=== PATIENT | female | born 1990 ===

== ENCOUNTER 2024-11-08 15:54 | Outpatient (AMB) | payer OTHER, SELFPAY ==
--- OUTSIDE RECORDS SUMMARY | 2024-11-08 16:15 | XMS_ITS | Clinical Summary ---
Author Organization Patient Business Ser [facility] Address [address] [place] [address] Care Team Providers Care Health Informatics Specialist Name Role Phone Jed Bal MD Primary Care Provider [phone] Allergies No known active allergies Medications PNV,calcium 72/iron,carb/fo lic ( PLUS ORAL) Take 1 tablet by mouth 1 (one) time each day. 4 Active ergocalciferol (VITAMIN D-2) 1,250 mcg (50,000 unit) capsule Take 1 capsule (50,000 Units total) by mouth 1 (one) time per week. 4 Active doxycycline (MONODOX) 100 mg capsule Take 1 capsule (100 mg total) by mouth 2 (two) times a day with meals. 4 Active galcanezumab-gn lm (Emgality Syringe) 120 mg/mL syringe 3 Active butalbital-acet aminophen-caffe ine (FIORICET, ESGIC) 50-325-40 mg per tablet Take 2 tablets by mouth 1 (one) time each day if needed for headaches. 30 DAYS 2 Active rizatriptan (MAXALT) 10 mg tablet Take 1 tablet (10 mg total) by mouth 1 (one) time each day if needed for migraine. May repeat in 2 hours if needed 1 Active levonorgestreL (MIRENA) 21 mcg/24hr (up to 8 yrs) 52 mg IUD 1 Device (1 each total) by intrauterine route 1 (one) time. 8 Active amitriptyline (ELAVIL) 50 mg tablet TAKE 1 TABLET BY MOUTH EVERYDAY AT BEDTIME 90 tablet 1 5 Active clindamycin (CLEOCIN T) 1 % gel APPLY TO AFFECTED AREAS ON FACE, CHEST, AND BACK TWICE A DAY AFTER SOLUTION 5 Active sulfacetamide suspension (KLARON) 10 % suspension topical * SAYS PT HAS WELLSENSE* APPLY TO FACE, CHEST, BACK, SHOULDERS DAILY 5 Active Active Problems Problem Noted Date Diagnosed Date Anxiety and depression 02/18/2024 Hemorrhoids 08/05/2020 Obesity (BMI 30-39.9) 05/04/2019 Migraine without status migrainosus, not intract able 10/06/2018 Overview (02/18/2024): Follows with neurology Dysplasia of cervix, high grade JAYMIE 2 05/25/2018 Low grade squamous intraepit h lesion on cytologic smear cervix (lgsil) 05/23/2018 Overview (02/18/2024): 04/21/2018 Pap smear LSIL 05/18/2018 Colpo JAYMIE 2 at 12 Oclock negative ECC 2019 LEEP 10/10/2020 Pap smear NSIL w HR HPV Neg -Actinomycin present Hyperthyroidism 09/06/2017 Overview (02/18/2024): Follows with endocrinology, on methimazole GERD (gastroesophageal reflux disease) 7 Insomnia 12/03/2016 Encounters Date Type Department Care Team Description 09/28/2024 11:00 AM EDT Procedure visit Obstetrics and Gynecology [address] [address] Yeimy Mcqueen, [place] Encounter for IUD insertion (Primary Dx); Encounter for removal and reinsertion of intrauterine contraceptive device (IUD) from Last 3 Months Immunizations Name Administration Dates Next Due Hepatitis B (Bqaxdpx-T-Zsquw , Recombivax HB-Adult) 19yo and older 09/19/2013 Influenza Quadravalent, MDCK , 0.5ml, preservative free (Flucelvax) 6mo and older 01/20/2022,12/19/2020 Influenza Quadravalent, MDCK , 0.5ml, with preservative (Flucelvax) 6mo and older 11/18/2016 Influenza, Unspecified 12/26/2019 MMR, measles mumps and rubel la Live (Priorix; M-M-R II) 12mo and older 09/19/2013 PPD Test 10/11/2014,08/28/2013 Tdap Tetanus diptheria acell ular pertussis (Boostrix; Adacel) 7yo and older 09/19/2013 Surgical History Surgery Date Site/Laterality Comments OTHER SURGICAL HISTORY PROCEDURE: BREAST CYST,FLUID FOR CYTOLOGY EXAM; COMMENT: removed form the right breast OVARIAN CYST REMOVAL PROCEDURE: ME OVARIAN CYSTECTOMY UNI/BI; COMMENT: during - first trimester WISDOM TOOTH EXTRACTION PROCEDURE: HISTORICAL WISDOM TEETH EXTRACTION OTHER SURGICAL HISTORY PROCEDURE: CERVICAL LEEP CONE BIOPSY [facility] PATHOLOGY EX; COMMENT: 2018 Medical History Medical History Date Comments Family history of ovarian cancer 11/18/2016 DX:Family history of ovarian cancer; COMMENT: Referred to genetics 11/2016 Anxiety and depression DX:Anxiet y and depression GERD (gastroesophageal reflux disease) 12/03/2016 DX:GERD (gastroesophageal reflux disease) Insomnia 12/03/2016 DX:Insomnia Hyperthyroidism 09/06/2017 DX:Hyperthyroidi sm; COMMENT: Follows with endocrinology, on methimazole Overweight (BMI 25.0-29.9) 08/11/2018 DX:Ov erweight (BMI 25.0-29.9) Hyperthyroidism 09/06/2017 Family History Medical History Relation Name Comments Hypertension Father Colon cancer Maternal Grandmother Hypertension Maternal Grandmother anxiety ; colon ca at age 45; Mental illness Mother had anxiety Alzheimer's disease Other maternal great grandmother Hypertension Paternal Grandfather DM, hea rt problems Hypertension Paternal Grandmother DM, hea rt problems Thyroid disease Paternal Grandmother Blindness Neg Hx Breast cancer Neg Hx Cataracts Neg Hx Glaucoma Neg Hx Macular degeneration Neg Hx Strabismus Neg Hx Uterine cancer Neg Hx Relation Name Status Comments Brother Alive X2 (pancreatiti s) Father Alive pancreatitis Maternal Grandmother age 50 Mother Alive Other Paternal Grandfather Paternal Grandmother Sister Alive X1 Social History Tobacco Use Types Packs/Day Years Used Date Smoking Tobacco: Never Smokeless Tobacco: Never Alcohol Use Standard Drinks/Week Comments Yes 0 (1 standard drink = 0.6 oz pur e alcohol) Comments No Sex and Gender Information Value Date Recorded Sex Assigned at Not on file Legal Sex Female 3:20 PM EST Gender Identity Not on file Sexual Orientation Not on file Obstetrics History * This document contains information received from the source organization and may not represent a complete record from that organization. Para Term AB IAB SAB Ectopic Multiple Livin g Live Births 2 1 1 1 1 Date Outcome GA Total Labor Labor/2nd/3rd Weight Sex Type Anes PTL Ellie A1 A5 Name Clin 2011 Term 2750 g (97 oz) F Vag-S pont Living Last Filed Vital Signs Vital Sign Reading Time Taken Comments Blood Pressure 149/96 09/28/2024 10:51 AM EDT Pulse 107 09/28/2024 10:51 AM EDT Temperature - - Respiratory Rate 14 09/28/2024 10:51 AM EDT Oxygen Saturation - - Inhaled Oxygen Concentration - - Weight 84.1 kg (185 lb 6.4 oz) 09/28/2024 10:51 AM EDT Height 165.1 cm (5' 5 ) 12/16/2023 1:46 PM EDT Body Mass Index 30.85 12/16/2023 1:46 PM EDT Plan of Treatment Upcoming Encounters Date Type Department Care Team (Late st Contact Info) Description 11/27/2024 9:30 AM EDT Office Visit Adult Medicine [address] [address] Jed Bal MD [address] [place] [id number] Health Maintenance Due Date Last Done Comments Social Influencers of Health Screening 03/11/2021 Cholesterol Screening (Lipid Panel) 11/18/2021 11/18/2016 DTaP,Tdap,and Td Vaccines (8 - Td or Tdap) 09/20/2023 09/19/2013, 04/14/2005, 06/25/1997, Additional history exists COVID-19 Vaccine ( season) 2023 07/26/2020, 07/05/2020 Depression Screening 03/14/2024 01/03/2024 Influenza Vaccine (#1) 2024 2, 12/19/2020, 12/26/2019, Additional history exists Colorectal Cancer Screening: Colonoscopy 11/20/2025 Cervical Cancer Screening: HPV 10/02/2028 10/03/2023 HIB Vaccines Completed 12/11/1993, 03/16, 1992 IPV Vaccines Completed 06/25/1997, 11/14, 04/13/1993, Additional history exists Meningococcal ACWY Vaccine Aged Out 04/07/2007 N o longer eligible based on patient's age to complete this topic HPV Vaccines Completed 11/27/2008, 07/12, 05/28/2008 Hepatitis B Vaccines Completed 09/19/2013, 04/13/1994, 1992, Additional history exists MMR Vaccines Completed 09/19/2013, 06/12, 12/11/1993 HIV Screening Completed 06/10/2023 Hepatitis C Screening Completed 06/10/2023 Hepatitis A Vaccines Aged Out No long er eligible based on patient's age to complete this topic Meningococcal B Vaccine Aged Out No l onger eligible based on patient's age to complete this topic Pneumococcal Vaccine: Pediatrics (0 to 5 Years) and At-Risk Patients (6 to 49 Years) Aged Out No longer eligible based on patient's age to complete this topic RSV Immunization Patients Under 20 months Aged Out No longer eligible based on patient's age to complete this topic Varicella Vaccines Aged Out No longer eligible based on patient's age to complete this topic Procedures Procedure Name Priority Date/Time Associated Diagnosis Comments POC , URINE DIAGNOSTIC Routine 09/28/2024 11:10 AM EDT Encounter for IUD insertion ME INSERTION INTRAUTERINE DEVICE Routine 09/28/2024 10:55 AM EDT Encounter for removal and reinsertion of intrauterine contraceptive device (IUD) ME REMOVAL INTRAUTERINE DEVICE Routine 09/28/2024 10:55 AM EDT Encounter for removal and reinsertion of intrauterine contraceptive device (IUD) DEPRESSION SCREENING Routine 01/03/2024 HPV Routine 10/03/2023 HEPATITIS C SCREENING Routine 06/10/2023 HIV SCREENING Routine 06/10/2023 LIPID PANEL Routine 11/18/2016 from Last 3 Months or Most Recently Relevant to Health Maintenance Results * POC , urine manually resulted (09/28/2024 11:10 AM EDT) [facility] HCG, Ur POC Negative Negative POC hCG Int QC Pass? Yes Yes Urine Urine specimen obtained by clean catch procedure / Unknown 09/28/2024 11:10 AM EDT Yeimy HANNA POINT OF CARE TEST ENTER/BASILIO T ORDERABLES Final Result * ME REMOVAL INTRAUTERINE DEVICE, ME INSERTION INTRAUTERINE DEVICE (09/28/2024 10:55 AM EDT) Narrative Yeimy Mcqueen PA - 09/28/2024 10:55 AM EDT JACQUES Montenegro 09/28/2024 11:25 AM IUD Removal with Reinsertion Date/Time: 09/28/2024 10:55 AM Performed by: JACQUES Montenegro Authorized by: JACQUES Montenegro Removal Procedure: Removal successful: yes Insertion Procedure: IUD type: Mirena IUD insertion successful: yes Medication Administration: 52 mg levonorgestreL 21 mcg/24hr (up to 8 yrs) 52 mg Yeimy HANNA IN CLINIC/BEDSIDE ORDERABLES Final Result * Depression Screening (01/03/2024) [facility] Depression Screening abstracted Historical Provider HEALTH MAINTENANCE Final Result * Cervical Cancer Screening: HPV (10/03/2023) [facility] Cervical Cancer Screening: HPV negative, abstracted Historical Provider HEALTH MAINTENANCE Final Result * HIV Screening (06/10/2023) [facility] HIV Screening abstracted [facility] Provider HEALTH MAINTENANCE Final Result * Hepatitis C Screening (06/10/2023) [facility] Hepatitis C Screening abstracted us Historical Provider HEALTH MAINTENANCE Final Result * Lipid panel (11/18/2016) LDL/HDL Ratio 2 0 - 4 Triglycerides 60 0 - 150 mg/dL Cholesterol 125 0 - 200 mg/dL HDL 57 >=40 mg/dL LDL Cholesterol 56 0 - 100 mg/dL Blood Venous blood specimen / Unknown us Historical Provider LAB BLOOD ORDERABLES Becca l Result from Last 3 Months or Most Recently Relevant to Health Maintenance Insurance [employer] Care Teams Health Informatics Specialist Relationship Specialty Start Date End Date Jed Bal MD PCP - General Internal Medicine 02/04/21
--- NOTE | 2024-11-08 16:23 | MHC.OFFVIS ---
Intake Visit Reasons: 6 Months/ Migrane Allergies No Known Allergies Allergy (Verified 11/08/24 16:27) Medication List - Last Reconciled 11/07/24 by Bronwyn Rush CNP amitriptyline 50 mg PO BEDTIME flundwwkba-uxoxwnpvlbucs-bxny 50-325-40 mg 2 tabs PO DAILY PRN clindamycin phosphate 1% topical BID galcanezumab-gnlm (Emgality) mg subcut ketoconazole 2% topical 2XW rizatriptan 10 mg PO DAILY PRN sulfacetamide sodium (acne) 10% topical DAILY HPI Comments Details: 34-year-old woman with migraine. Emgality was working out, but for half of the month. Medications were helping with migraines, but she was still having some headaches each week. Headaches were happening about 1-3x/week. Using rizatriptan and butalbital as needed which help some. Sleep was okay. Stress was still there. She was told by pharmacy that Emgality needed PA, due for dose next month. Review of Systems Const Denies chills, Denies daytime sleepiness, Denies difficulty sleeping, Denies fatigue, Denies fever(s), Denies frequent falls, Reports headache(s), Denies increased appetite, Denies poor appetite, Denies snoring, Denies weakness, Denies weight gain and Denies weight loss Eyes Denies loss of vision ENT Denies vertigo, Denies dizziness and Reports headache(s) Card Denies chest pain at rest, Denies chest pain with activity, Denies syncope, Denies leg edema and Denies palpitations Resp Denies snoring GI Denies constipation, Denies heartburn, Denies diarrhea and Denies nausea Denies urinary frequency, Denies urinary incontinence and Denies urinary urgency Musc Denies abnormal gait, Denies numbness and Denies tingling Skin/Breast Denies dry skin and Denies rash Neuro Denies abnormal gait, Denies vertigo, Denies dizziness, Denies syncope, Denies frequent falls, Reports headache(s), Denies lack of coordination, Denies loss of vision, Denies memory loss, Denies numbness, Denies restless legs, Denies seizure-like activity, Denies tingling, Denies paresthesias, Denies tremor(s) and Denies weakness Psych Reports anxiety, Denies depression, Denies auditory hallucinations, Denies memory loss, Denies visual hallucinations and Denies suicidal ideation Endo Denies fatigue and Denies palpitations Physical Exam Const Other: General Appearance:? normal, in no acute distress. Skin:? no rashes, no significant birthmarks. Heart:? S1, S2 normal, no murmurs. Lungs:? clear anteriorly and posteriorly. Extremities:? no edema. Psych:? alert, oriented, cognitive function intact, cooperative with exam. Neuro Other: Mental Status:?Normal attention, orientation, memory and affect.? Cranial Nerves:?Pupils are equal, round and reactive to light. External occular muscles are intact. Visual thomas are full. Face is symmetrical. Facial sensations are normal. Tongue is midline. Palate elevates symmetrically. Shoulder shrugging is normal. Hearing to bedside conversation is normal. Sensory Exam:?....? Coordination:?No ataxia,?no titubation.? Gait Exam: Within normal limits. Extrapyramidal System:?No tremor, rigidity with normal facial expressions.? Pronator Drift:?Not present.? Involuntary Movements:?No tremors seen.? Speech:?Normal.? Assessment & Plan Assessment & Plan (1) Migraine without aura: Code(s): G43.009 - Migraine without aura, not intractable, without status migrainosus Category: Medical Qualifiers: Status migrainosus presence: without status migrainosus Intractability: not intractable Qualified Code(s): G43.009 - Migraine without aura, not intractable, without status migrainosus Plan: Continue Emgality Solution Prefilled Syringe 120mg/mL 1mL subcutaneous monthly - She was told by pharmacy that medication needed PA, due for dose next month. Will complete PA. Continue amitriptyline 50mg 1 tablet at bedtime. Continue rizatriptan 10mg 1 tablet as needed for migraine. Continue luhyjwdwka-WJQD-ffcw 50-325-40 2 tablets as needed for headache #12 for 30 days. Continue metoclopramide 5mg 1 tablet as needed for nausea/vomiting. Plan Meds tried: amitriptyline, propranalol, topiramate, verapamil, Depakote, sumatriptan, rizatriptan, butalbital, ibuprufen, tylenol, excedrin Aimovig made headaches worse Medications: New ohcddvrcfp-biphzeminftuy-mwig 50-325-40 mg 2 tabs PO DAILY PRN 12 tabs 5RF headache 30 days galcanezumab-gnlm (Emgality) 120 mg subcut QMONTH 1 mL 5RF 30 days rizatriptan 10 mg PO DAILY PRN 10 tabs 5RF headache 30 days metoclopramide HCl 5 mg PO DAILY PRN 10 tabs 5RF nausea and vomiting 30 days Coding Level of Care Code Est Pt Level 4 (30649) Diagnoses Migraine without aura and without status migrainosus, not intractable G43.009 Status migrainosus presence: without status migrainosus Intractability: not intractable
== END 2024-11-08 16:37 | disposition home or self-care (01) ==
LOC: HO.HSM 15:55
PROVIDERS: PCP Internal Medicine; Referring Provider Internal Medicine; Visit Provider Registered Nurse
DX: G43.009 Migraine without aura, not intractable, without status migrainosus (principal)
CPT/HCPCS: 99214

== ENCOUNTER → 2024-11-08 15:54 | Outpatient (BNVA) | payer OTHER, SELFPAY | PROVIDERS: PCP Internal Medicine; Referring Provider Internal Medicine; Visit Provider Registered Nurse | DX: G43.009 Migraine without aura, not intractable, without status migrainosus (principal); Z79.899 Other long term (current) drug therapy | CPT/HCPCS: 99212 ==